=== PATIENT | male | born 1970 | race Caucasian/White ===

== ENCOUNTER 2018-08-07 05:33 | Inpatient (IN) ==
[2018-08-07] MEDS ORDERED: ASPIRIN ONE (05:40)
[2018-08-07] MEDS ORDERED: ASPIRIN PR ONE (05:40)
[2018-08-07] MEDS ORDERED: ASPIRIN PO ONE (05:45)
[2018-08-07] MEDS ORDERED: LABETALOL ONE (06:01)
--- NOTE | 2018-08-07 06:01 | PROVIDER DOCUMENTATION ---
HPI-Chest Pain - General Chief Complaint: Chest Pain Stated Complaint: CHEST PAIN Time Seen by Provider: 08/07/18 05:34 Source: patient Allergies/Adverse Reactions: Patient Allergies Allergy/AdvReac Type Severity Reaction Status Date / Time No Known Allergies Allergy Verified 02/25/15 09:42 Home Medications: Home Medication List Medication Instructions Recorded Confirmed Last Taken Type Ibuprofen [Motrin] 800 mg PO Q8H PRN PRN #20 tablet 02/25/15 Unknown Rx Omeprazole 20 mg PO DAILY #20 capsule. 02/25/15 Unknown Rx Tramadol E.r. [Ultram ER] 100 mg PO Q6HR #14 tablet 02/25/15 Unknown Rx - History of Present Illness-CP Nature of Presenting Problem: Patient is a 47 year old white male with history of atrial fibrillation, HTN, psoriasis, tobacco abuse,and morbid obesity who presents with 6/10 left sided chest pressure, orthopnea, elevated blood pressure, and tachycardia for past 2 days. Location: reports: other (left sided chest pressure with radiation to left arm) Chest Pain Radiation: reports: arms (left arm) Quality of Pain: reports: pressure Severity in ED: moderate Onset/Duration: 2 days ago Associated Symptoms: denies: diaphoresis, fever/chills Aspirin Treatment Today: provided by ED Similar Symptoms Previously?: No Recently Seen Here or By Another Healthcare Provider: No Review of Systems - Adult - REVIEW OF SYSTEMS - ADULT Constitutional: denies: chills, fever Eyes: reports: no symptoms reported Ears, Nose, Mouth & Throat: reports: no symptoms reported Cardiovascular: reports: chest pain, edema, orthopnea Respiratory: reports: shortness of breath Gastrointestinal: reports: no symptoms reported Genitourinary: reports: no symptoms reported Musculoskeletal: reports: no symptoms reported Integumentary: reports: no symptoms reported Neurological: reports: no symptoms reported Psychiatric: reports: anxiety Endocrine: reports: no symptoms reported Hematologic/Lymphatic: reports: no symptoms reported Allergic/Immunologic: reports: no symptoms reported All Other Systems: Reviewed and Negative Past History - Adult - PAST MEDICAL HISTORY-ADULT Review of Records: reports: Old Records Reviewed, Nursing Assessment Review, Medications Reviewed, Social history reviewed & non-contributory. Major Childhood Illnesses: reports: denies history Cardiovascular: reports: A-Fib, HTN Gastrointestinal: reports: denies history Genitourinary: reports: denies history Musculoskeletal: reports: denies history Neurological: reports: denies history Psychiatric: reports: anxiety - PRIOR SURGERIES/PROCEDURES Surgical/Procedure History: reports: orthopedic (extremity) - IMMUNIZATION STATUS Childhood Immunizations: See Nurse Assessment Flu Vaccine: See Nurse Assessment Physical Exam-General - PHYSICAL EXAM-ADULT Initial Vital Signs Reviewed: Yes - CONSTITUTIONAL General Appearance: alert, obese, other (diaphoretic) - EYES Eyes: other (clear) - HEAD, EARS, NOSE, MOUTH & THROAT HENMT: moist mucous membranes, normal ENT inspection - NECK Neck: non-tender, full range of motion, supple - RESPIRATORY Respiratory: no accessory muscle use, decreased breath sounds - CARDIOVASCULAR Cardiovascular: tachycardia - GASTROINTESTINAL (ABDOMEN) Abdominal Exam: non tender, soft, other (obese). negative: guarding, rebound - LYMPHATIC Lymphatic: no adenopathy - MUSCULOSKELETAL Back Exam: normal inspection, no CVA tenderness Extremity: non-tender, swelling Peripheral Pulses: radial (R): 2+, radial (L): 2+ - SKIN Integumentary: normal color, normal turgor, warm/dry - NEUROLOGIC Neurologic: grossly normal - PSYCHIATRIC Psych/Mental Status: anxious Progress - PLAN OF CARE/RESULTS Progress/Plan/Lab Results: Vital Signs - 8 hr 08/07/18 05:36 Temperature 98.1 F Pulse Rate 117 H Respiratory Rate 22 Blood Pressure 166/131 O2 Sat by Pulse Oximetry 91 L Laboratory Results - last 24 hr 08/07/18 08/07/18 08/07/18 05:54 05:54 05:54 WBC 14.26 H RBC 5.16 Hgb 15.6 Hct 45.8 MCV 88.8 MCH 30.2 MCHC 34.1 RDW Std Deviation 13.7 Plt Count 212 MPV 11.5 H Immature Gran % (Auto) 0.2 Neut % (Auto) 80.1 H Lymph % (Auto) 12.8 L Stone % (Auto) 6.2 Eos % (Auto) 0.6 Baso % (Auto) 0.1 Immature Gran # (Auto) 0.03 Neut # (Auto) 11.42 H Lymph # (Auto) 1.83 Stone # (Auto) 0.88 H Eos # (Auto) 0.08 Baso # (Auto) 0.02 PT INR PTT (Actin FS) Sodium 133 L Potassium 4.8 Chloride 101 Carbon Dioxide 19 L Anion Gap 13 BUN 7 L Creatinine 0.7 Estimated GFR/1.73 m2 > 60 BUN/Creatinine Ratio 10 Glucose 193 H Calculated Osmolality 270 Calcium 8.6 L Total Bilirubin 1.30 H AST 22 ALT 40 Alkaline Phosphatase 107 Creatine Kinase 109 Troponin T Txq-[id number]-Ocohiljjntl Pept 1554 H Total Protein 6.9 Albumin 3.8 Globulin 3.0 Albumin/Globulin Ratio 1.0 08/07/18 08/07/18 05:54 05:54 WBC RBC Hgb Hct MCV MCH MCHC RDW Std Deviation Plt Count MPV Immature Gran % (Auto) Neut % (Auto) Lymph % (Auto) Stone % (Auto) Eos % (Auto) Baso % (Auto) Immature Gran # (Auto) Neut # (Auto) Lymph # (Auto) Stone # (Auto) Eos # (Auto) Baso # (Auto) PT 14.9 INR 1.11 PTT (Actin FS) 30.6 Sodium Potassium Chloride Carbon Dioxide Anion Gap BUN Creatinine Estimated GFR/1.73 m2 BUN/Creatinine Ratio Glucose Calculated Osmolality Calcium Total Bilirubin AST ALT Alkaline Phosphatase Creatine Kinase Troponin T < 0.010 [id number]-[id number]-Pfwfwlxdcas Pept Total Protein Albumin Globulin Albumin/Globulin Ratio Orders Category Date Time Status Cardiac Monitoring DIRECTED Care 08/07/18 05:46 Active Oxygen Therapy- ED Nursing DIRECTED Care 08/07/18 05:46 Active Saline Loc NOW Care 08/07/18 05:46 Active CHEST-PORTABLE [RAD] Stat Exams 08/07/18 06:01 Completed CBC WITH ELECTRONIC DIFF [HEME] Stat Lab 08/07/18 05:54 Completed CK PROFILE [SP CHEM] Stat Lab 08/07/18 05:54 Completed COMPREHENSIVE METABOLIC PANEL [CHEM] Stat Lab 08/07/18 05:54 Completed PRO B-NATRIURETIC PEPTIDE Stat Lab 08/07/18 05:54 Completed PROTIME WITH INR [COAG] Stat Lab 08/07/18 05:54 Completed PTT [COAG] Stat Lab 08/07/18 05:54 Completed TROPONIN T Stat Lab 08/07/18 05:54 Completed URINE DRUG SCREEN PL Stat Lab 08/07/18 06:04 Uncollected Aspirin Med 08/07/18 05:40 Discontinued 300 mg OR NOW ONE Aspirin Med 08/07/18 05:40 Discontinued 325 mg .ROUTE .STK-MED ONE Aspirin Med 08/07/18 05:45 Discontinued 325 mg PO NOW ONE Furosemide [Lasix] Med 08/07/18 06:09 Discontinued 40 mg IV NOW ONE Labetalol Med 08/07/18 06:01 Discontinued 100 mg .ROUTE .STK-MED ONE Labetalol Med 08/07/18 06:03 Discontinued 20 mg IV NOW ONE Nitroglycerin Med 08/07/18 06:08 Discontinued 1 inch TOP NOW ONE CP/SOB/Palp >45 yrs of Age Stat Oth 08/07/18 05:45 Ordered EKG [EKG] Stat Ther 08/07/18 05:37 Draft Result Diagrams: 08/07/18 05:54 08/07/18 05:54 - EKG 1 Time of EKG reading by physician:: 05:41 EKG Read and Signed by:: Chris Meng Rate: 119 Rhythm: sinus tach [place]: left Comments: no STEMI - CONSULTS/PCP/HOSPITALIST Notification #1 *Consult/PCP/Hospitalist*: Dr. Robertson, hospitalist Time Discussed: 06:50 Consult Disposition: Admit Departure - Departure Date of Disposition Decision: 08/07/18 Time of Disposition Decision: 07:01 DIAGNOSIS: Chest pain Qualifiers: Chest pain type: unspecified Qualified Code(s): R07.9 - Chest pain, unspecified CHF (congestive heart failure) Qualifiers: Heart failure type: other Qualified Code(s): I50.9 - Heart failure, unspecified Disposition: ADMITTED INPATIENT 09 Certified Medical Emergency: Emergent Condition: Stable Referrals and Follow-Ups: None,PCP [NON-STAFF PROVIDER] - - Critical Care Note This patient required my direct & personal management of CC.: No Attestation - Physician/ PENELOPE Attestation Patient care was provided by Advanced Practice Provider:: No The physician spent face to face time with patient:: Yes Advanced Practice Provider documentation review:: Supervising physician onsite and consulted in the evaluation and care of this patient. The physician did have a face to face encounter with the patient.
[2018-08-07] MEDS ORDERED: LABETALOL IV ONE (06:03)
[2018-08-07] MEDS ORDERED: NITROGLYCERIN TOP ONE (06:08)
[2018-08-07] MEDS ORDERED: LASIX IV ONE (06:09)
[2018-08-07 06:17] LABS: BASO# 0.02 X1000 (0.0-0.2); BASO% 0.1 % (0.0-0.8); EOS# 0.08 X1000 (0.0-0.7); EOS% 0.6 % (0.0-10.0); HEMATOCRIT 45.8 % (42.0-52.0); HEMOGLOBIN 15.6 g/dL (14.0-18.0); IMM GRAN# 0.03 X1000 (0.0-0.04); IMM GRAN% 0.2 % (0.0-0.5); LYMPH# 1.83 X1000 (1.2-3.4); LYMPH% 12.8 % (20.5-51.1); MCH 30.2 PG (27-31); MCHC 34.1 g/dL (33-37); MCV 88.8 FL (81-99); MONO# 0.88 X1000 (0.11-0.59); MONO% 6.2 % (1.7-9.3); MPV 11.5 FL (7.4-10.4); NEUT# 11.42 X1000 (1.4-6.5); NEUT% 80.1 % (42.2-75.2); PLT 212 X1000 (130-400); RBC 5.16 XMIL (4.7-6.1); RDW 13.7 % (11.5-14.5); WBC 14.26 X1000 (4.8-10.8)
[2018-08-07 06:24] LABS: INR 1.11; PROTIME 14.9 Seconds (11.0-16.0)
[2018-08-07 06:25] LABS: PTT 30.6 Seconds (22.3-41.8)
--- NOTE | 2018-08-07 06:27 | EKG Report ---
Test Performed on : 08/07/2018 05:40:51 AM Test Reason : CHEST PAIN Blood Pressure : / mmHG Vent. Rate : 119 BPM Atrial Rate : 119 BPM P-R Int : 134 ms QRS Dur : 106 ms QT Int : 348 ms P-R-T Axes : 052 -41 091 degrees QTc Int : 489 ms Sinus tachycardia. Possible Left atrial enlargement Left axis deviation Nonspecific ST and T wave abnormality Abnormal ECG No previous ECGs available Unconfirmed Result
--- NOTE | 2018-08-07 06:42 | Diag Imaging Result Doc PS360 ---
CHEST-PORTABLE - 08/07/2018 INDICATION: cp COMPARISON: 06/17/2014 FINDINGS: There is cardiomegaly and diffuse pulmonary vascular congestion. There is some background interstitial pulmonary edema. No pneumothorax or significant pleural effusion. IMPRESSION: Cardiomegaly, pulmonary vascular congestion. Interstitial pulmonary edema. Electronically signed by Holger Leo 08/07/2018 6:40 AM
[2018-08-07 06:44] LABS: AGAP 13; ALBUMIN 3.8 g/dL (3.5-5.0); ALKALINE PHOSPHATASE 107 U/L (32-122); BUN 7 mg/dL (8-22); CALCIUM 8.6 mg/dL (8.8-10.2); CHLORIDE 101 mmol/L (98-107); CK PROFILE 109 U/L (24-204); COSMO 270; CREATININE 0.7 mg/dL (0.7-1.2); ESTIMATED GFR > 60; GLUCOSE 193 mg/dL (70-104); GOT 22 U/L (10-34); GPT 40 U/L (10-44); POTASSIUM 4.8 mmol/L (3.5-5.1); SODIUM 133 mmol/L (136-145); TCO2 19 mmol/L (25-35); TOTAL PROTEIN 6.9 g/dL (6.3-8.3)
[2018-08-07 07:45] LABS: UR AMPHETAMINES QUAL NONE DETECTED (NONE DETECT); UR BARBITUATES QUAL NONE DETECTED (NONE DETECT); UR BENZODIAZEPIN QUAL NONE DETECTED (NONE DETECT); UR CANNABINOIDS QUAL PRESUMPTIVE POSITIVE (NONE DETECT); UR COCAINE QUAL NONE DETECTED (NONE DETECT); UR METHADONE QUAL NONE DETECTED (NONE DETECT); UR METHAMPHETAMINE QUAL NONE DETECTED (NONE DETECT); UR OPIATES QUAL NONE DETECTED (NONE DETECT); UR OXYCODONE QUAL NONE DETECTED (NONE DETECT); UR PCP QUAL NONE DETECTED (NONE DETECT); UR PROPOXYPHENE QUAL NONE DETECTED (NONE DETECT); UR TCA QUAL NONE DETECTED (NONE DETECT)
[2018-08-07] MEDS ORDERED: TYLENOL PO PRN (12:12)
[2018-08-07] MEDS ORDERED: NICODERM PATCH TD PRN (15:07)
[2018-08-07] MEDS: DUONEB (A & A) INH SCH ×3 (15:42→23:35)
[2018-08-07] MEDS: LASIX IV SCH (18:32)
[2018-08-07] MEDS: LOVENOX SUBQ SCH (18:32)
--- NOTE | 2018-08-07 18:37 | HISTORY AND PHYSICAL ---
CHIEF COMPLAINT: Chest pain. HISTORY OF PRESENT ILLNESS: This is a 47-year-old male with a history of atrial fibrillation, hypertension and psoriasis who presents to the emergency room complaining of chest pressure, hypertension, tachycardia and orthopnea for the last 2 days. On further questioning the patient, he has had a history of shortness of breath and "lung problems" since he was a child, having multiple bouts of bronchitis and pneumonia. He states that over the last few years he has treated his bouts of pneumonia with friends' antibiotics or [id number] medications. He states that he has had wheezing and shortness of breath, and for many months he has been using his father-in- law's nebulizer which has helped his breathing, although he has not been evaluated by a physician. He states that over the last week that he has had increasing shortness of breath, it started out as dyspnea on exertion and progressed to shortness of breath at rest. He started having some chest pressure with this, prompting his ER visit. He does state he has a history of atrial fibrillation, although he cannot remember the last time he had an episode, and he is not on any medications. PAST MEDICAL HISTORY: Atrial fibrillation, hypertension. PAST SURGICAL HISTORY: Total knee replacement. SOCIAL HISTORY: He denies alcohol, tobacco or illicit drug use. 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 REVIEW OF SYSTEMS: Discussed with the patient, with pertinent positives stated in the HPI. He denied any syncope or dizziness, any nausea, vomiting, diarrhea, constipation, any fevers or chills, any productive cough, any hematuria, dysuria, frequency or urgency. PHYSICAL EXAMINATION: GENERAL: This is a 47-year-old male who is sitting up in the bed watching TV in no distress. VITAL SIGNS: Blood pressure is 136/90 with a heart rate of 97, respirations are 20, temperature is 98.3 degrees oral, with O2 saturations that are 92% to 94% on 2 L nasal cannula. EYES: Pupils equal, round and react to light. EOMs are intact, sclerae anicteric. HEENT: Head is normocephalic, atraumatic. Mucous membranes are moist. NECK: Supple, with trachea midline. CARDIOVASCULAR: Regular rate and rhythm. S1 and S2 are appreciated. Calves are nontender bilateral. He has no lower extremity edema. Peripheral pulses palpable x4 extremities. PULMONARY: Breath sounds. He does have some expiratory wheezing. He does have some bibasilar crackles. Chest rises and falls symmetric with respiration. GASTROINTESTINAL: Abdomen is large, soft, nontender, with bowel sounds in all 4 quadrants. GENITOURINARY: He has no CVA or suprapubic tenderness. SKIN: Warm and dry. NEUROLOGIC: He is alert and oriented x3. LABORATORY DATA: WBC is 14.2 with hemoglobin 15.6, hematocrit 45.8, platelets of 212,000. INR is 1.11. D-dimer 0.34. Sodium 133, potassium 4.8, BUN 7, creatinine 0.7, with a glucose of 193, total bilirubin is 1.3. Troponins are negative. ProBNP is 1554 with CPK of 109 and 189. Urine drug screen is presumptive positive for cannabinoids. DIAGNOSTIC DATA: Chest x-ray reveals cardiomegaly, pulmonary vascular congestion, interstitial pulmonary edema. ASSESSMENT AND PLAN: 1. Chest pain. The patient has no further chest pain. We will continue to trend his troponins and cardiac profile. He will be placed on telemetry. 2. Dyspnea. 3. Hypoxemia. He did have room air saturations of 90% to 91%. Saturations did come up to 93% on 2 L. We will continue at present and monitor. 4. Wheezing. The patient states he has a long history of wheezing. He has been using his father- in-law's nebulized treatments and states it has been helping. He did clear after DuoNeb; therefore, we will continue these and monitor. 5. Pulmonary edema, pulmonary vascular congestion. He was given Lasix 40 mg intravenously q.12 hours. We will monitor daily weights and strict intake and output. We will obtain an echocardiogram. 6. History of atrial fibrillation. He is in sinus rhythm at present. 7. Hypertension. He is on no home medications. We will start metoprolol and monitor. 8. History of tobacco use and abuse. Nicotine patch as needed. 9. We will check a CBC with CMP in the morning. We will continue to trend troponins and cardiac profile. Check a sedimentation rate and CRP. Repeat electrocardiogram in the morning. 10. For deep venous thrombosis prophylaxis we will use Lovenox. Dictated by CHELLY Beltran for Holden Robetrson MD cc: CHELLY Beltran MD
[2018-08-07] MEDS: LOPRESSOR PO SCH (20:19)
--- NOTE | 2018-08-08 01:33 | HISTORY AND PHYSICAL ---
ADDENDUM: Patient seen and examined by myself. Full note dictated and discussed with nurse practitioner. Patient is a 47-year-old male, presented to the hospital with atrial fibrillation, hypertension. He has obstructive sleep apnea. He started having chest pain. We will admit him to the hospital, rule out TX, consider stress testing. His blood pressure is elevated. We will need to address this as well. Discussed with patient that he needs to stop smoking, lose weight. Continue with CPAP. cc: Holden Robertson MD
[2018-08-08] MEDS: DUONEB (A & A) INH SCH ×6 (02:50→23:23)
[2018-08-08] MEDS: LASIX IV SCH ×2 (05:31→17:52)
--- NOTE | 2018-08-08 07:56 | EKG Report ---
Test Performed on : 08/08/2018 07:39:09 AM Test Reason : CP, dyspnea Blood Pressure : / mmHG Vent. Rate : 089 BPM Atrial Rate : 089 BPM P-R Int : 140 ms QRS Dur : 108 ms QT Int : 400 ms P-R-T Axes : 017 -30 123 degrees QTc Int : 486 ms Normal sinus rhythm. Possible Left atrial enlargement Left axis deviation Incomplete left bundle branch block T wave abnormality, consider lateral ischemia Abnormal ECG When compared with ECG of 07-AUG-2018 05:40, (Unconfirmed) No significant change was found Unconfirmed Result
[2018-08-08 08:09] LABS: HEMATOCRIT 46.4 % (42.0-52.0); HEMOGLOBIN 15.8 g/dL (14.0-18.0); MCH 30.4 PG (27-31); MCHC 34.1 g/dL (33-37); MCV 89.4 FL (81-99); MPV 11.5 FL (7.4-10.4); RBC 5.19 XMIL (4.7-6.1); RDW 13.6 % (11.5-14.5); WBC 13.07 X1000 (4.8-10.8)
[2018-08-08 08:22] LABS: AGAP 12; ALBUMIN 3.6 g/dL (3.5-5.0); ALKALINE PHOSPHATASE 128 U/L (32-122); BUN 13 mg/dL (8-22); CALCIUM 8.7 mg/dL (8.8-10.2); CHLORIDE 98 mmol/L (98-107); COSMO 276; CREATININE 0.8 mg/dL (0.7-1.2); ESTIMATED GFR > 60; GLUCOSE 165 mg/dL (70-104); GOT 22 U/L (10-34); GPT 37 U/L (10-44); POTASSIUM 3.8 mmol/L (3.5-5.1); SODIUM 136 mmol/L (136-145); TCO2 26 mmol/L (25-35); TOTAL PROTEIN 7.6 g/dL (6.3-8.3)
[2018-08-08] MEDS: ASPIRIN PO SCH (09:03)
[2018-08-08] MEDS: LOPRESSOR PO SCH ×2 (09:03→22:09)
--- NOTE | 2018-08-08 16:32 | CARDIOLOGY CONSULTATION ---
DATE: 08/08/2018 CHIEF COMPLAINT: Shortness of breath, cough. HISTORY: Mr. Bee is a 47-year-old male who presented to [facility] on August 07 at about 5:30 a.m. The patient states that on August 05, he was doing some cookout with his family, and toward the end of the morning and after eating, he felt unusually bloated, full, and started to feel short of breath. It was associated with some cough and felt like his chest was "full of air." This progressed through the course of the ensuing 24 hours, and as he did not seem to get any better, he decided to come to the ER. In the emergency room, they did a chest x-ray that shows cardiomegaly, pulmonary vascular congestion, and interstitial pulmonary edema. Electrocardiogram shows sinus rhythm with a sinus tachycardia, rate 119 beats per minute, a left anterior fascicular block, QRS duration is 106 msec, possible left atrial enlargement. They checked a proBNP level that was elevated at 1554 pg/mL. His C-reactive protein is elevated at 73.49 mg/L. Sedimentation rate also slightly elevated at 21 mm/h. His white cell count was 14,260. The patient has been admitted for further management. PAST MEDICAL HISTORY: positive for psoriasis with arthritis which he has treated for a number of years; however, after a divorce, he had to quit taking Humira because of the cost of the drug. He said that for 2 shots every month, he had to pay $2000 with insurance, and without insurance, it was impossible for him to afford. He said that for the past several months since January 2018 he had a number of what he describes as bouts of upper respiratory infections for which he has taken intermittently antibiotics and antitussive medications. He believes that the current bout is the worst of all of the ones that he has had since January 2018. SURGICAL HISTORY: Positive for right knee arthroscopic surgery Dr. Watkins 15 years ago and C5 neck cervical spine surgery Dr. Crawford about 10 years ago in [place]. FAMILY HISTORY: Father of CHF, and mother of other noncardiac related complications. SOCIAL HISTORY: He is the 4th child of 6 children. He is . He smokes 1-1/2 packs of cigarettes a day. He drinks about 6 to 12 cans of beer. Each can is 16 ounces. This is about 3 days a week. 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 He has no children of his own. MEDICATION: He is not taking any prescription medicine. PRIMARY CARE PHYSICIAN: He uses Dr. Francisco as his family doctor; however, he has not seen him in a while. REVIEW OF SYSTEMS: About 8 years ago he was evaluated at [facility], [place] because of a possible case of atrial fibrillation, paroxysmal, and at that time they did a CT of the coronary arteries that showed minimal coronary calcification, and they recommended some medical therapy back then. They did not visualize any significant coronary plaque, less than 10% or around 10% in I believe the LAD. The patient's weight has gone up in the past few months. He is morbidly obese. Weight is 268 pounds. BMI is 42.1. PHYSICAL EXAMINATION: Blood pressure is 129/84, temperature 97.8 degrees, pulse 87, respirations 18. He is awake, alert, oriented, in no distress.HEENT: Unremarkable. Chest shows diminished breath sounds diffusely. Heart sounds are regular and rhythmic with a 4th heart sound, question of gallop. Abdomen is obese, nontender. No hepatomegaly or splenomegaly. Extremities showed palpable pulses. No edema. Skin shows evidence of psoriatic lesions in the knees in both lower extremities. 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 The patient has not taken medication for it for a few years . Neurological: Follows commands and moves all extremities. DIAGNOSTIC STUDIES: Today sodium 136, potassium 3.8, BUN is 13, creatinine 0.8. IMPRESSION: 1. Patient presenting to the hospital with what appears to be congestive heart failure. This is probably chronic systolic with an acute exacerbation. He does have an abnormal ECG, and he appears to have a 4th heart sound on auscultation of the heart. This could be alcohol-related since his alcohol intake is pretty elevated, as per his report of 6 to 12 cans of beer, 16 ounces each one. 2. Tobacco abuser. 3. Morbid obesity. 4. Likely sleep apnea syndrome. 5. Psoriasis, untreated. 6. History of mild coronary atherosclerosis per coronary CTA, 2011. RECOMMENDATIONS: I would suggest to review the echocardiogram that was done today. I will arrange for a walking Lexiscan myocardial perfusion stress test to further evaluate. We will offer further recommendations upon review of those tests. The patient is strongly recommend to quit drinking, quit smoking, follow a strict diet, healthy lifestyle, and he definitely needs to establish care with a pneumatic press hand to treat his psoriasis, and we will initiate management with MARY inhibitors and probably low-dose digoxin. cc: Shahab Menendez MD MTDD
[2018-08-08] MEDS: LOVENOX SUBQ SCH (17:52)
[2018-08-08] MEDS ORDERED: LIBRIUM PO ONE (18:11)
[2018-08-08] MEDS: LIBRIUM PO SCH (22:09)
[2018-08-08] MEDS: ALTACE PO SCH (22:09)
--- NOTE | 2018-08-09 01:37 | ECHO REPORT ---
ORDER DATE: 08/08/2018 MEASUREMENTS: Septal thickness 1.3. Left ventricular internal diameter diastole 6.6, posterior wall thickness 1.3, aortic root 3.4, left atrium 4.6. SUMMARY: 1. Technically difficult study due to limited acoustic window quality. Intravenous echo contrast agent Optison was utilized to enhance endocardial definition. 2. Aortic valve is not well imaged but is probably trileaflet. Aortic valve appears to open normally on 2-dimensional images. Peak gradient across the aortic valve is less than 10 mmHg. Mitral and tricuspid valves are without evidence of structural abnormality, while pulmonic valve was not well demonstrated. There is trace mitral regurgitation and trace tricuspid regurgitation. Aortic root is normal size. 3. Moderate left ventricular enlargement with mild concentric left hypertrophy is demonstrated. Estimated left ejection fraction approximately 20% in the setting of severe global hypokinesis. Mild to moderate left atrial enlargement is demonstrated. Right atrium is mildly enlarged. The right ventricle appears mildly enlarged. 4. No pericardial effusion. 5. Appearance of inferior vena cava suggests normal central venous pressure. cc: MD Holden Baxter MD
[2018-08-09] MEDS: DUONEB (A & A) INH SCH ×6 (03:56→23:01)
--- NOTE | 2018-08-09 04:00 | PROGRESS NOTE ---
DATE: 08/08/2018 SUBJECTIVE: Patient states he is feeling okay. Still has shortness of breath. Still has swelling in the lower extremities. OBJECTIVE: Vital Signs: Reviewed. He is afebrile. Blood pressure is stable. Heart rate 80s. General: Patient is awake, alert, sitting in the chair. No current respiratory distress. HEENT: Normocephalic. Neck: Supple. Cardiovascular: Regular rate. No murmurs. Chest: Clear, nonlabored. Abdomen: Soft. Extremities: Moves all extremities. ASSESSMENT: 1. Systolic heart failure with an ejection fraction of 15 to 20 percent. 2. Chest pain, resolved. 3. Dyspnea. 4. Hypoxemia. PLAN: We will continue patient in the hospital today until we can arrange follow-up. Discussed with patient the importance of controlling blood pressures, stopping smoking, et cetera. cc: Holden Robertson MD
[2018-08-09] MEDS: LIBRIUM PO SCH ×3 (04:58→20:33)
[2018-08-09] MEDS: LASIX IV SCH (05:00)
[2018-08-09] MEDS: ALTACE PO SCH ×2 (12:03→20:33)
[2018-08-09] MEDS: ASPIRIN PO SCH (12:03)
[2018-08-09] MEDS: LASIX PO SCH ×2 (12:03→20:33)
[2018-08-09] MEDS: LOPRESSOR PO SCH ×2 (12:03→20:33)
[2018-08-09] MEDS ORDERED: LEXISCAN ONE (15:11)
--- NOTE | 2018-08-09 16:10 | Diag Imaging Result Document ---
PROCEDURE NAME: MYOCARDIAL PERF SCAN, STR/REST - 08/09/2018 STUDY: Rest/stress walking Lexiscan myocardial perfusion study. INDICATION: Patient presented with congestive heart failure with systolic dysfunction per echocardiogram. Heavy smoker, drinker, and morbidly obese. Etiology of his heart failure is being evaluated. DESCRIPTION: The patient came into the nuclear laboratory, received resting injection of technetium 99 sestamibi 15.6 mCi. Multiple tomographic views of the cardiac structures were obtained at rest. Subsequently, the patient underwent a walking Lexiscan protocol. At peak infusion, injected with technetium 99 sestamibi 46.3 mCi. Multiple tomographic views of the cardiac structures were obtained following the completion of the protocol. Lexiscan 0.4 mg was used for the study. SUMMARY OF THE ELECTROCARDIOGRAPHIC PORTION OF THE STUDY: Resting ECG shows sinus rhythm, rate 87 beats per minute. Resting blood pressure 142/97. Resting ECG shows nonspecific ST wave change in lateral leads. There is also nonspecific intraventricular conduction delay. During the protocol, the heart rate increased to 107 beats per minute, blood pressure went up to 148/83. The ECG showed sinus tachycardia without any ischemic changes. Following completion of the test, the heart rate and blood pressure returned back to baseline. In summary, the electrocardiographic response to walking Lexiscan protocol is deemed to be normal. SUMMARY OF THE MYOCARDIAL PERFUSION PORTION OF THE STUDY: Poststress tomographic views of the left ventricle showed a [id number] in severity basal to apical inferoseptal defect. The rest images suggest that this defect is mostly fixed. Polar plots revealed the same. There is a wedge-like defect that extends from the apex of the anterior/inferior wall boundary to the base of the inferoseptal segment. This is likely to represent attenuation artifact. There is no inducible ischemia. Gated SPECT on the rest images showed ejection fraction of 38%, poststress images 35%. The gating of the rest images was not optimal. Using the alternative protocol Myometrix with a 16-bin gate showed that the rest ejection fraction is 29% and the poststress is 35%. The impairment is global. The interesting feature is that both Alireza tool and Myometrix coincide with the poststress ejection fraction at 35%. That indicates global impairment. The chamber is dilated. The lung/heart ratio is elevated with obvious indication of lung uptake on both rest and stress images. The lung/heart ratio is 0.58. TID is normal at 0.87. SUMMARY: This study shows: 1. Abnormal resting ECG with an unremarkable response to walking Lexiscan protocol. 2. Abnormal poststress myocardial perfusion scan. 3. There is a scintigraphic indication of a fixed defect involving the apical inferior all the way to the basal inferior wall of the left ventricle in a narrow wedge shape. This probably indicates attenuation artifact rather than a scar. There is no inducible ischemia. 4. Significant enlarged left ventricle with moderately impaired systolic function, ejection fraction estimated at 35% on the poststress images using a 16-bin protocol. 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 Clinical correlation is strongly recommended. cc: Shahab Menendez MD MTDD
[2018-08-09] MEDS: LOVENOX SUBQ SCH (18:07)
--- NOTE | 2018-08-09 20:15 | PROGRESS NOTE ---
DATE: 08/09/2018 SUBJECTIVE: The patient overall notes that he is feeling better. He denies any current chest pain or shortness of breath. OBJECTIVE: Vital signs reviewed and stable. He is awake, alert. He is in no respiratory distress, sitting in a chair awaiting a stress test. HEENT: Normocephalic. Neck supple. CV: Regular rate. Chest clear and nonlabored. Abdomen is soft.Extremities: Moves all extremities. Neurologic: No focal changes. ASSESSMENT: 1. Congestive heart failure. 2. Chest pain. 3. History of atrial fibrillation. 4. Hypertension. PLAN: The patient will undergo a stress test today. He will have further recommendations per Cardiology after that. ADDENDUM: The patient's stress test was abnormal, with dilated cardiomyopathy on resting images. We will await Cardiology's decision on further plan. cc: Holden Robertson MD
[2018-08-10] MEDS: DUONEB (A & A) INH SCH ×3 (03:43→11:58)
[2018-08-10] MEDS: LIBRIUM PO SCH ×2 (04:46→12:06)
[2018-08-10] MEDS: ASPIRIN PO SCH (09:50)
[2018-08-10] MEDS: ALTACE PO SCH (09:50)
[2018-08-10] MEDS: LOPRESSOR PO SCH (09:50)
[2018-08-10] MEDS: LASIX PO SCH (09:50)
[2018-08-10] MEDS ORDERED: NICODERM PATCH TD PRN (10:29)
--- NOTE | 2018-08-10 11:02 | Diag Imaging Result Doc PS360 ---
EXAM: CHEST-2 VIEWS HISTORY: dyspnea TECHNIQUE: Chest two views COMPARISON: 08/07/2018 FINDINGS: The lungs are well expanded. The heart is mildly enlarged. The vessels are not distended. There are no infiltrates. No pleural effusions. IMPRESSION: Interval improvement. Electronically signed by Lucas Gomez 08/10/2018 11:00 AM
[2018-08-10 11:03] LABS: AGAP 10; BUN 16 mg/dL (8-22); CALCIUM 9.4 mg/dL (8.8-10.2); CHLORIDE 98 mmol/L (98-107); COSMO 284; CREATININE 1.1 mg/dL (0.7-1.2); ESTIMATED GFR > 60; GLUCOSE 118 mg/dL (70-104); MAGNESIUM 2.1 mg/dL (1.5-2.7); POTASSIUM 4.2 mmol/L (3.5-5.1); SODIUM 141 mmol/L (136-145); TCO2 33 mmol/L (25-35)
[2018-08-10 11:36] LABS: HEMATOCRIT 46.8 % (42.0-52.0); HEMOGLOBIN 15.5 g/dL (14.0-18.0); MCH 30.3 PG (27-31); MCHC 33.1 g/dL (33-37); MCV 91.4 FL (81-99); MPV 10.9 FL (7.4-10.4); RBC 5.12 XMIL (4.7-6.1); RDW 13.3 % (11.5-14.5); WBC 9.32 X1000 (4.8-10.8)
[2018-08-10 11:48] VITALS: BP 103/67
[2018-08-11] MEDS ORDERED: ASPIRIN PO SCH (09:00)
--- NOTE | 2018-08-11 14:27 | DISCHARGE SUMMARY ---
ADMISSION DATE: 08/07/2018 DISCHARGE DATE: 08/10/2018 DIAGNOSES: 1. Congestive heart failure with an EF of 20% in the setting of severe global hypokinesis. 2. Psoriasis. 3. Chest pain resolved. 4. Dyspnea, chronic. 5. Hypoxemia. 6. Morbid obesity. 7. Chronic alcohol use. DIAGNOSTICS: 1. Chest x-ray 08/07/2018 revealed cardiomegaly and pulmonary vascular congestion and interstitial pulmonary edema. 2. Echocardiogram revealed moderate left ventricular enlargement with mild concentric left hypertrophy, estimated ejection fraction 20% in the setting of severe global hypokinesis. Mild to moderate left atrial enlargement is demonstrated. Right atrium is mildly enlarged. The right ventricle appears mildly enlarged. No pericardial effusion. Aortic valve is trileaflet. It appears to open normally with a peak gradient less than 10. 3. Myocardial perfusion scan with post-stress tomographic views of the left ventricle show mild to moderate in severity, basal to apical inferoseptal defect. The rest images suggest the defect is mostly fixed. There is no inducible ischemia. Significant enlarged left ventricle with moderately impaired systolic function, ejection fraction 30% on post- stress images using a 16 bin protocol. Had abnormal resting EKG with a unremarkable response to walking Lexiscan protocol. 4. 08/10/2018 chest x-ray revealed lungs are well expanded. Heart is mildly enlarged. Vessels are not distended. There are no infiltrates and no pleural effusions. CONSULTANTS: Dr. Menendez, Cardiology. HOSPITAL COURSE: Mr. Bee presented to the emergency room complaining of chest pain shortness of breath. He was found to have pulmonary edema and vascular congestion. He received IV Lasix and diuresed for a cumulative negative output of 2474. Breathing improved greatly after diuresis. He was evaluated by Dr. Menendez who initiated Altace.Cardiac testing as above. He had no recurrence of chest pain. DISCHARGE VITAL SIGNS: Blood pressure 103/67 with heart rate of 81, respirations 20, temperature 98.3 degrees with room air sats 93%. DISCHARGE PHYSICAL EXAM: Cardiovascular: Regular rate and rhythm. S1 and S2 are appreciated. Extremities: He had no lower extremity edema. Calves nontender bilateral. Peripheral pulses palpable x4 extremities. Pulmonary: Breath sounds clear with no increased work of breathing noted. Chest rises and falls symmetric respiration. Gastrointestinal: Abdomen is soft, nontender, nondistended with bowel sounds in all 4 quadrants. Neurologic: Alert and oriented x3. DISCHARGE MEDICATIONS: 1. Altace 5 mg p.o. b.i.d. 2. Aspirin 81 mg p.o. daily. 3. Lasix 40 mg p.o. b.i.d. 4. Metoprolol 25 mg p.o. b.i.d. FOLLOW-UP: 1. Dr. Antonia Francisco 08/20/2018 at 11:[address] Smooth Menendez 09/07/2018 at 11 a.m. He was instructed to call to be seen sooner or return to the emergency room for any syncope, dizziness, recurring chest pain, palpitations, increasing shortness of breath, PND, orthopnea, productive cough, temperature greater than 101, any nausea, vomiting, diarrhea, constipation, black or bloody vomitus or stools, any hematuria, dysuria, frequency, urgency or for any questions or concerns that he may have. He is being discharged home in stable condition with family members. TIME SPENT: This is a greater than 30 minute discharge. Dictated by CHELLY Beltran for Holden Robertson MD cc: CHELLY Beltran MD [facility]
--- NOTE | 2018-08-11 15:57 | DISCHARGE SUMMARY ---
ADMISSION DATE: 08/07/2018 DISCHARGE DATE: 08/10/2018 ADDENDUM: Patient seen and examined by myself. Full note dictated and discussed with nurse practitioner. The patient underwent a stress test when he was here as well as consultation with Cardiology. Patient will be discharged home. He did undergo stress testing. He will follow up outpatient with Cardiology. Patient's chest pain is resolved. He understands the importance of following up with Cardiology to continue to attempt to improve his systolic congestive heart failure. cc: Holden Robertson MD
== END 2018-08-10 13:12 | disposition home or self-care (01) | DRG 292 ==
LOC: P.ED 05:33 → P.MEDSURG 08:04
PROVIDERS: ATTEND Family Medicine